=== PATIENT | male | born 1985 ===

== ENCOUNTER 2022-01-26 04:32 | Emergency (ER) | payer SELFPAY ==
[~2022-01-26] VITALS: Ht 172.7 cm; Wt 81.3 kg
[2022-01-26] MEDS ORDERED: KETOROLAC 30 MG/ML VIAL IVP STA (04:56)
[2022-01-26] MEDS ORDERED: KETOROLAC 30 MG/ML VIAL ONE (04:58)
[2022-01-26] MEDS ORDERED: ONDANSETRON 4 MG/2 ML (SDV) Z0FRAN IVP ONE (05:00)
[2022-01-26] MEDS ORDERED: LACTATED RINGERS 1,000 ML IV ONE (05:00)
[2022-01-26 05:01] LABS: BASOPHILS # (AUTO) 0.1 10^3/uL (0.0-0.1); BASOPHILS % (AUTO) 1 % (0-10); EOSINOPHILS # (AUTO) 0.2 10^3/uL (0.0-0.3); EOSINOPHILS % (AUTO) 2 % (0-10); HEMATOCRIT 40 % (40-54); HEMOGLOBIN 13.9 g/dL (13.3-17.7); LYMPHOCYTES # (AUTO) 2.3 10^3/uL (1.0-4.0); LYMPHOCYTES % (AUTO) 19 % (12-44); MEAN CORPUSCULAR HEMOGLOBIN 30 pg (25-34); MEAN CORPUSCULAR HGB CONC 35 g/dL (32-36); MEAN CORPUSCULAR VOLUME 86 fL (80-99); MONOCYTES % (AUTO) 8 % (0-12); NEUTROPHILS # (AUTO) 8.7 10^3/uL (1.8-7.8); NEUTROPHILS % (AUTO) 70 % (42-75); PLATELET COUNT 390 10^3/uL (130-400); WHITE BLOOD COUNT 12.4 10^3/uL (4.3-11.0)
--- NOTE | 2022-01-26 05:03 | ED Abdominal Pain ---
General Stated Complaint: ABD PAIN,BACK PAIN Source of Information: Patient History of Present Illness Date Seen by Provider: Jan 26, 2022 Time Seen by Provider: 04:48 Initial Comments PT ARRIVES VIA POV C/O LEFT LOWER ABDOMINAL PAIN RADIATING TO LEFT FLANK PAIN BEGAN 1 1/2 HOURS AGO HAS HAD NAUSEA AND VOMITED X 1 HAS NOT BEEN ABLE TO URINATE SINCE THE PAIN BEGAN NO FEVER HAS NOT TAKEN ANYTHING FOR PAIN PT WAS DX WITH A 7 1/2 "CM" LEFT KIDNEY STONE LAST MONTH--WAS SEEN AT [place] STATES HE NEVER SAW THE STONE PASS WAS PUT ON UNKNOWN MEDICATIONS, WHICH HE FINISHED HE DID FOLLOW UP AT [facility] AFTER THAT --STATES HE HAD AN ULTRASOUND AND WAS TOLD THEY DIDN'T FIND A STONE NO OTHER TESTS, NO RX'S AND NO REFERRAL TO UROLOGY HAS NEVER HAD A KIDNEY STONE PRIOR TO THAT STATES HE "DOESN'T THINK THIS IS A KIDNEY STONE BECAUSE THIS IS MUCH WORSE" PT STATES HE HAS BROKEN HIS BACK IN THE PAST--T 12-- AND HAS RODS AND SCREWS STATES THIS DOES NOT FEEL LIKE THAT NO PARESTHESIAS OR MOTOR DEFICITS PT HAS BEEN IN A [place] THIS WEEKEND AND IS TRAVELING THROUGH--LIVES IN [place], [place] HE DENIES ANY INJURY FROM THE [place]. DOES NOT TAKE ANY DAILY MEDICATIONS NO CHRONIC MEDICAL PROBLEMS PCP: [facility]. Allergies and Home Medications Allergies Coded Allergies: No Known Drug Allergies (Unverified , 01/26/22) Patient Home Medication List Home Medication List Reviewed: Yes Ciprofloxacin HCl (Ciprofloxacin HCl) 500 Mg Tablet, 500 MG PO BID Prescribed by: DEEJAY MCKEON on 01/26/22 0635 Hydrocodone Bit/Acetaminophen (HYDROcodone/APAP 7.5/325 TAB) 1 Ea Tablet, 1-2 EA PO Q4-6 PRN for PAIN Prescribed by: DEEJAY MCKEON on 01/26/22 0636 Ketorolac Tromethamine (Ketorolac Tromethamine) 10 Mg Tablet, 10 MG PO Q6H Prescribed by: DEEJAY MCKEON on 01/26/22 0635 Ondansetron (Ondansetron Odt) 8 Mg Tab.rapdis, 8 MG PO Q6H Prescribed by: DEEJAY MCKEON on 01/26/22 0635 Tamsulosin HCl (Flomax) 0.4 Mg Cap, 0.4 MG PO DAILY Prescribed by: DEEJAY MCKEON on 01/26/22 0635 Review of Systems Review of Systems Constitutional: no symptoms reported Respiratory: No Symptoms Reported Cardiovascular: No Symptoms Reported Gastrointestinal: See HPI, Abdominal Pain, Nausea, Vomiting Genitourinary: See HPI, Flank Pain Musculoskeletal: see HPI, back pain Skin: no symptoms reported Psychiatric/Neurological: No Symptoms Reported Endocrine: No Symptoms Reported Hematologic/Lymphatic: No Symptoms Reported Past Lfclagb-Sahxxr-Maezpy Hx Past Medical History Surgeries: Yes (BACK SURGERY WITH RODS AND SCREWS FOR T12 FX) Orthopedic Respiratory: No Cardiac: No Neurological: No Genitourinary: Yes Kidney Stones Gastrointestinal: No Musculoskeletal: Yes (T12 FX WITH ORIF) Fractures Endocrine: No HEENT: No Cancer: No Psychosocial: No Integumentary: No Blood Disorders: No Physical Exam Vital Signs Vital Signs - First Documented 01/26/22 04:46 Temp 36.6 Pulse 81 Resp 24 B/P (MAP) 162/83 (109) Pulse Ox 100 O2 Delivery Room Air Capillary Refill : Height/Weight/BMI Height: '" Weight: lbs. oz. kg; BMI Method: General Appearance: WD/WN, other (EXTREMELY DRAMATIC, WAILING, SCREAMING, PACING) Respiratory: normal breath sounds, no respiratory distress, no accessory muscle use Cardiovascular: regular rate, rhythm, no murmur Extremities: normal inspection Neurologic/Psychiatric: no motor/sensory deficits, alert, oriented x 3 Skin: warm/dry, damp, pallor Progress/Results/Core Measures Results/Orders Lab Results Laboratory Tests Test 01/26/22 04:53 01/26/22 05:47 Range/Units White Blood Count 12.4 H 4.3-11.0 10^3/uL Red Blood Count 4.64 4.30-5.52 10^6/uL Hemoglobin 13.9 13.3-17.7 g/dL Hematocrit 40 40-54 % Mean Corpuscular Volume 86 80-99 fL Mean Corpuscular Hemoglobin 30 25-34 pg Mean Corpuscular Hemoglobin Concent 35 32-36 g/dL Red Cell Distribution Width 11.9 10.0-14.5 % Platelet Count 390 130-400 10^3/uL Mean Platelet Volume 9.0 9.0-12.2 fL Immature Granulocyte % (Auto) 1 % Neutrophils (%) (Auto) 70 42-75 % Lymphocytes (%) (Auto) 19 12-44 % Monocytes (%) (Auto) 8 0-12 % Eosinophils (%) (Auto) 2 0-10 % Basophils (%) (Auto) 1 0-10 % Neutrophils # (Auto) 8.7 H 1.8-7.8 10^3/uL Lymphocytes # (Auto) 2.3 1.0-4.0 10^3/uL Monocytes # (Auto) 1.0 0.0-1.0 10^3/uL Eosinophils # (Auto) 0.2 0.0-0.3 10^3/uL Basophils # (Auto) 0.1 0.0-0.1 10^3/uL Immature Granulocyte # (Auto) 0.1 0.0-0.1 10^3/uL Sodium Level 139 135-145 MMOL/L Potassium Level 3.6 3.6-5.0 MMOL/L Chloride Level 105 98-107 MMOL/L Carbon Dioxide Level 17 L 21-32 MMOL/L Anion Gap 17 H 5-14 MMOL/L Blood Urea Nitrogen 21 H 7-18 MG/DL Creatinine 1.48 H 0.60-1.30 MG/DL Estimat Glomerular Filtration Rate 62 BUN/Creatinine Ratio 14 Glucose Level 150 H 70-105 MG/DL Calcium Level 9.7 8.5-10.1 MG/DL Corrected Calcium 8.5-10.1 MG/DL Total Bilirubin 0.4 0.1-1.0 MG/DL Aspartate Amino Transf (AST/SGOT) 26 5-34 U/L Alanine Aminotransferase (ALT/SGPT) 55 0-55 U/L Alkaline Phosphatase 66 40-136 U/L Total Protein 7.3 6.4-8.2 GM/DL Albumin 4.6 H 3.2-4.5 GM/DL Amylase Level 38 25-125 U/L Lipase 15 8-78 U/L Serum Alcohol < 10 <10 MG/DL Urine Color YELLOW Urine Clarity CLOUDY Urine pH 8.0 5-9 Urine Specific [place] 1.015 L 1.016-1.022 Urine Protein TRACE H NEGATIVE Urine Glucose (UA) NEGATIVE NEGATIVE Urine Ketones TRACE H NEGATIVE Urine Nitrite NEGATIVE NEGATIVE Urine Bilirubin NEGATIVE NEGATIVE Urine Urobilinogen 0.2 < = 1.0 MG/DL Urine Leukocyte Esterase NEGATIVE NEGATIVE Urine RBC (Auto) TRACE-I H NEGATIVE Urine RBC NONE /HPF Urine WBC NONE /HPF Urine Crystals PRESENT H /LPF Urine Amorphous Sediment LARGE DONNA PHOSPHATE H /LPF Urine Bacteria NEGATIVE /HPF Urine Casts NONE /LPF Urine Mucus NEGATIVE /LPF Urine Culture Indicated NO Urine Opiates Screen POSITIVE H NEGATIVE Urine Oxycodone Screen NEGATIVE NEGATIVE Urine Methadone Screen NEGATIVE NEGATIVE Urine Propoxyphene Screen NEGATIVE NEGATIVE Urine Barbiturates Screen NEGATIVE NEGATIVE Ur Tricyclic Antidepressants Screen NEGATIVE NEGATIVE Urine Phencyclidine Screen NEGATIVE NEGATIVE Urine Amphetamines Screen NEGATIVE NEGATIVE Urine Methamphetamines Screen NEGATIVE NEGATIVE Urine Benzodiazepines Screen NEGATIVE NEGATIVE Urine Cocaine Screen NEGATIVE NEGATIVE Urine Cannabinoids Screen NEGATIVE NEGATIVE My Orders Orders - DEEJAY MCKEON DO Ed Iv/Invasive Line Start (01/26/22 04:48) Ct Abd/Pelvis Wo(Kidney Stone) (01/26/22 04:48) Abdomen/Kub 1view (01/26/22 04:48) Alcohol (01/26/22 04:48) Amylase (01/26/22 04:48) Cbc With Automated Diff (01/26/22 04:48) Comprehensive Metabolic Panel (01/26/22 04:48) Drug Screen Stat (Urine) (01/26/22 04:48) Lipase (01/26/22 04:48) Ua Culture If Indicated (01/26/22 04:48) Ed Iv/Invasive Line Start (01/26/22 04:56) Ed Iv/Invasive Line Start (01/26/22 04:56) Lactated Ringers (Lr 1000 Ml Iv Solution (01/26/22 05:00) Ondansetron Injection (Zofran Injectio (01/26/22 05:00) Ketorolac Injection (Toradol Injection) (01/26/22 04:56) Ketorolac Injection (Toradol Injection) (01/26/22 04:58) Morphine Injection (Morphine Injection (01/26/22 05:39) Tamsulosin Capsule (Flomax Capsule) (01/26/22 06:30) Morphine Injection (Morphine Injection (01/26/22 06:38) Hydrocodone/Apap 7.5/325 Tab (Lortab 7. (01/26/22 06:45) Rx-Ondansetron Po (Rx-Zofran Po) (01/26/22 06:38) Rx-Hydrocodone/Apap 5-325 Mg (Rx-Vicodin (01/26/22 06:45) Medications Given in ED Vital Signs/I&O 01/26/22 01/26/22 04:46 07:20 Temp 36.6 Pulse 81 79 Resp 24 16 B/P (MAP) 162/83 (109) 141/80 Pulse Ox 100 99 O2 Delivery Room Air Progress Progress Note : Progress Note GIVEN IV FLUIDS, ZOFRAN, TORADOL, MORPHINE AND FLOMAX WITH IMPROVEMENT IN SYMPTOMS NO UROLOGY SERVICES AVAILABLE HERE ALL WEEKEND OFFERED TRANSFER TO ANOTHER FACILITY THAT HAS UROLOGY SERVICES AVAILABLE, PT OPTS TO TRY TO GO HOME AND FOLLOW UP WITH DR. SERRA ON THURSDAY. Diagnostic Imaging Comments KUB--CALCIFICATION IN MID PELVIS--PENDING RADIOLOGIST REVIEW CT ABDOMEN/PELVIS--PER RADIOLOGIST REPORT AT 627 FINDINGS: Evaluation of the abdominal viscera is suboptimal without contrast. Lower chest: The lung bases are clear. No pericardial or pleural effusion. Peritoneum: No free intraperitoneal air or fluid. Liver and biliary system: Diffuse hypoattenuation liver is indicative of steatosis. No focal hepatic lesion. The gallbladder is normal. No biliary duct dilation. Spleen and Pancreas: Spleen is normal. Unenhanced pancreas is grossly normal. Adrenals: Normal. tract: Mild left perinephric stranding. There is a 10 mm stone that appears be near completely passed into urinary bladder near the UVJ. Mild left hydronephrosis. There are additional nonobstructing left-sided renal stones. No right renal or ureteral stones. Urinary bladder is partially filled. Prostate is not enlarged. GI tract: Stomach is partially filled with fluid. No bowel obstruction. No pericolonic inflammatory changes. Normal appendix. Vasculature and Lymph nodes: Normal caliber aorta. No abdominal or pelvic lymphadenopathy. Musculoskeletal: No concerning osseous lesion. Prior posterior fusion in the thoracic spine superior endplate fracture of T12. Fat-containing indirect left inguinal hernia. IMPRESSION: 1. Mild left hydronephrosis due to a 10 mm stone that is either completely or near completely passed into the urinary bladder and located near the UVJ. 2. Diffuse hepatic steatosis. Reviewed: Reviewed by Me Departure Impression Primary Impression: Calculus of distal left ureter Disposition: HOME, SELF-CARE Condition: Improved Departure-Patient Inst. Decision time for Depature: 06:35 Referrals: NO,LOCAL PHYSICIAN (PCP) Primary Care Physician BEN SERRA MD Patient Instructions: Kidney Stones (DC), Kidney Stone, Adult ED Add. Discharge Instructions: LOTS OF CLEAR LIQUIDS STRAIN ALL URINE--RETURN ANY STONES TO UROLOGIST OFFICE FOLLOW UP WITH DR. SERRA ON THURSDAY FOR FURTHER CARE--CALL ON THURSDAY MORNING FOR APPOINTMENT RETURN TO ER IF SYMPTOMS WORSEN Scripts Ciprofloxacin HCl (Ciprofloxacin HCl) 500 Mg Tablet 500 MG PO BID, #14 TAB Prov: DEEJAY MCKEON K DO 01/26/22 Ketorolac Tromethamine (Ketorolac Tromethamine) 10 Mg Tablet 10 MG PO Q6H for Pain, #15 TAB Prov: MIKETRAVISA K DO 01/26/22 Ondansetron (Ondansetron Odt) 8 Mg Tab.rapdis 8 MG PO Q6H, #10 TAB Prov: MIKEDEEJAY K DO 01/26/22 Hydrocodone Bit/Acetaminophen (HYDROcodone/APAP 7.5/325 TAB) 1 Ea Tablet 1-2 EA PO Q4-6 PRN for PAIN, #20 TAB Prov: MIKEDEEJAY K DO 01/26/22 Tamsulosin HCl (Flomax) 0.4 Mg Cap 0.4 MG PO DAILY, #10 CAP Prov: MIKE,DEEJAY K DO 01/26/22 MIKEDEEJAY K DO Jan 26, 2022 05:02
[2022-01-26 05:11] LABS: ALBUMIN 4.6 GM/DL (3.2-4.5); CHLORIDE 105 MMOL/L (98-107); POTASSIUM 3.6 MMOL/L (3.6-5.0); SODIUM 139 MMOL/L (135-145)
[2022-01-26 05:12] LABS: AMYLASE 38 U/L (25-125); CALCIUM 9.7 MG/DL (8.5-10.1)
[2022-01-26 05:13] LABS: GLUCOSE 150 MG/DL (70-105); TOTAL PROTEIN 7.3 GM/DL (6.4-8.2)
[2022-01-26 05:14] LABS: CARBON DIOXIDE 17 MMOL/L (21-32)
[2022-01-26 05:15] LABS: BILIRUBIN,TOTAL 0.4 MG/DL (0.1-1.0)
[2022-01-26 05:17] LABS: ALKALINE PHOSPHATASE 66 U/L (40-136); CREATININE SERUM 1.48 MG/DL (0.60-1.30); GFR ESTIMATED 62
[2022-01-26 05:18] LABS: BUN/CREATININE RATIO 14
[2022-01-26 05:20] LABS: ALANINE AMINOTRANSFERASE 55 U/L (0-55); LIPASE 15 U/L (8-78)
[2022-01-26] MEDS ORDERED: morphine INJ 10 MG/ML 1ML (SYR OR VIAL) IVP STA ×2 (05:39→06:38)
[2022-01-26 05:55] LABS: BILIRUBIN,URINE NEGATIVE (NEGATIVE); CLARITY,URINE CLOUDY; COLOR,URINE YELLOW; GLUCOSE, URINE (UA) NEGATIVE (NEGATIVE); KETONES,URINE TRACE (NEGATIVE); LEUKOCYTE ESTERASE ,URINE NEGATIVE (NEGATIVE); NITRITE,URINE NEGATIVE (NEGATIVE); PROTEIN,URINE TRACE (NEGATIVE)
[2022-01-26 06:12] LABS: AMORPHOUS SEDIMENT,UR LARGE AMOR PHOSPHATE /LPF; BACTERIA,URINE NEGATIVE /HPF
--- NOTE | 2022-01-26 06:23 | Diagnostic Imaging Report ---
CT ABD/PELVIS WO(KIDNEY STONE) TECHNIQUE: Unenhanced CT imaging of the abdomen and pelvis was performed. 2-D reformats are created and submitted for interpretation. Automatic exposure controls were utilized to optimize patient dose. INDICATION: Abdominal pain COMPARISON: None available. FINDINGS: Evaluation of the abdominal viscera is suboptimal without contrast. Lower chest: The lung bases are clear. No pericardial or pleural effusion. Peritoneum: No free intraperitoneal air or fluid. Liver and biliary system: Diffuse hypoattenuation liver is indicative of steatosis. No focal hepatic lesion. The gallbladder is normal. No biliary duct dilation. Spleen and Pancreas: Spleen is normal. Unenhanced pancreas is grossly normal. Adrenals: Normal. tract: Mild left perinephric stranding. There is a 10 mm stone that appears be near completely passed into urinary bladder near the UVJ. Mild left hydronephrosis. There are additional nonobstructing left-sided renal stones. No right renal or ureteral stones. Urinary bladder is partially filled. Prostate is not enlarged. GI tract: Stomach is partially filled with fluid. No bowel obstruction. No pericolonic inflammatory changes. Normal appendix. Vasculature and Lymph nodes: Normal caliber aorta. No abdominal or pelvic lymphadenopathy. Musculoskeletal: No concerning osseous lesion. Prior posterior fusion in the thoracic spine superior endplate fracture of T12. Fat-containing indirect left inguinal hernia. IMPRESSION: 1. Mild left hydronephrosis due to a 10 mm stone that is either completely or near completely passed into the urinary bladder and located near the UVJ. 2. Diffuse hepatic steatosis. Dictated by: Dictated on workstation # [id number]
--- NOTE | 2022-01-26 06:28 | Diagnostic Imaging Report ---
INDICATION: Abdominal pain EXAMINATION: Abdomen 01/26/2022 FINDINGS: Two views of the abdomen. There is postoperative change with interpedicular screws and intervening rods extending through the thoracolumbar spine. Orthopedic hardware appears intact. There is scattered air and stool throughout the colon to the rectosigmoid. No dilated loops of bowel. IMPRESSION: 1. Nonobstructive bowel gas pattern. Dictated by: Dictated on workstation # [id number]
[2022-01-26] MEDS ORDERED: TAMSULOSIN 0.4 MG (FLOMAX) CAP PO SCH (06:30)
[2022-01-26 06:31] LABS: AMPHETAMINE SCREEN, URINE NEGATIVE (NEGATIVE); BARBITURATE SCREEN URINE NEGATIVE (NEGATIVE); BENZODIAZEPINES SCREEN URINE NEGATIVE (NEGATIVE); CANNABINOID SCREEN, URINE NEGATIVE (NEGATIVE); COCAINE SCREEN URINE NEGATIVE (NEGATIVE); METHADONE STAT NEGATIVE (NEGATIVE); OPIATE SCREEN URINE POSITIVE (NEGATIVE); OXYCODONE STAT NEGATIVE (NEGATIVE); PROPOXYPHENE STAT NEGATIVE (NEGATIVE); TRICYCLIC ANTIDEPRESSANTS SCRE NEGATIVE (NEGATIVE)
[2022-01-26] MEDS ORDERED: TMSL.4C PO (06:35)
[2022-01-26] MEDS ORDERED: ONDA8TAB13 PO (06:35)
[2022-01-26] MEDS ORDERED: CIPR500T5 PO (06:35)
[2022-01-26] MEDS ORDERED: KETO10TA PO (06:35)
[2022-01-26] MEDS ORDERED: HYDR-34 PO (06:35)
[2022-01-26] MEDS ORDERED: RX-ONDANSETRON 4 MG ODT (ZOFRAN) PPK #4 PO STA (06:38)
[2022-01-26] MEDS ORDERED: HYDROcodone/APAP 7.5 MG/325 MG (LORTAB, LORCET PLUS) TABLET PO ONE (06:45)
[2022-01-26 07:20] VITALS: BP 141/80
== END 2022-01-26 07:26 | disposition home or self-care (01) ==
LOC: ER 04:35
DX: N13.2 Hydronephrosis with renal and ureteral calculous obstruction (principal); Z28.310 Unvaccinated for COVID-19
CPT/HCPCS: 74018; 74176; 80053; 80306; 81000; 82150; 83690; 85025; 99284; G0480; 36415; 80320